=== PATIENT | male | born 1995 | race Caucasian/White ===

== ENCOUNTER 2019-07-22 10:00 | Emergency (ER) | payer OTHER ==
[~2019-07-22] VITALS: Ht 177.8 cm; Wt 90.7 kg
[2019-07-22 10:09] VITALS: BP 138/68
[2019-07-22] MEDS ORDERED: ONDANSETRON ODT 4 MG TAB PO ONE (11:30)
[2019-07-22] MEDS ORDERED: ACETAMINOPHEN 500 MG TAB PO ONE (11:30)
[2019-07-22] MEDS ORDERED: IPRATROPIUM BROM 0.5 MG/2.5ML INH SOL NEB ONE (12:00)
[2019-07-22] MEDS ORDERED: ALBUTEROL SULF 2.5 MG/0.5ML(0.5%) NEB SOLN NEB ONE (12:00)
== END 2019-07-22 12:40 | disposition home or self-care (01) ==
LOC: ER 10:00
DX: R51 Headache (principal); R42 Dizziness and giddiness; T43.595A Adverse effect of other antipsychotics and neuroleptics, initial encounter; Y92.89 Other specified places as the place of occurrence of the external cause
CPT/HCPCS: 71046; 94640; 99283; J7611; J7644; Q0162